=== PATIENT | female | born 1970 | race Caucasian/White ===

== ENCOUNTER 2016-11-28 13:33 | Emergency (ER) | payer OTHER ==
[~2016-11-28] VITALS: Ht 160 cm; Wt 63.5 kg
[2016-11-28 15:47] VITALS: BP 127/92
== END 2016-11-28 15:47 | disposition home or self-care (01) ==
LOC: ED 13:33
DX: S63.501A Unspecified sprain of right wrist, initial encounter (principal); S60.221A Contusion of right hand, initial encounter; K21.9 Gastro-esophageal reflux disease without esophagitis; M79.7 Fibromyalgia; X58.XXXA Exposure to other specified factors, initial encounter; Y93.89 Activity, other specified; Y99.8 Other external cause status; Y92.89 Other specified places as the place of occurrence of the external cause
CPT/HCPCS: A4570

== ENCOUNTER 2017-05-11 04:20 | Emergency (ER) | payer OTHER ==
[~2017-05-11] VITALS: Ht 160 cm; Wt 66.9 kg
[2017-05-11 04:28] VITALS: BP 129/84
== END 2017-05-11 05:15 | disposition home or self-care (01) ==
LOC: ED 04:20
DX: M54.12 Radiculopathy, cervical region (principal); M79.7 Fibromyalgia

== ENCOUNTER 2017-09-20 23:15 | Emergency (ER) | payer OTHER ==
[~2017-09-20] VITALS: Ht 160 cm; Wt 68.5 kg
[2017-09-20 23:31] VITALS: Ht 160 cm; Wt 68.5 kg
[2017-09-21 01:14] VITALS: BP 130/70
== END 2017-09-21 01:14 | disposition home or self-care (01) ==
LOC: ED 23:15
DX: M25.552 Pain in left hip (principal)